=== PATIENT | female | born 1960 | race African-American/Black ===

== ENCOUNTER 2021-08-29 04:12 | Emergency (ER) | payer BC, OTHER ==
[2021-08-29 04:25] VITALS: TEMP 98.3; BMI 29.0
[2021-08-29] MEDS ORDERED: SODIUM CHLORIDE 0.9% 500 ML INFUS.BAG IV ONE ×2 (04:55→05:00)
[2021-08-29 05:30] LABS: BASO % 0.5 % (0-2.0); EOS % 1.1 % (0-4.5); HEMATOCRIT 40.6 % (32.4-45.2); HEMOGLOBIN 13.5 GM/dL (10.7-15.3); LYMPH % 30.5 % (8-40); MCH 33.5 pg (25.7-33.7); MCHC 33.3 g/dl (32.0-36.0); MEAN CELL VOLUME 100.5 fl (80-96); MEAN PLT VOLUME 8.1 fl (7.5-11.1); MONO % 10.6 % (3.8-10.2); NEUT % 57.3 % (42.8-82.8); PLATELET COUNT 194 10^3/uL (134-434); RBC 4.04 M/mm3 (3.60-5.2); RDW 13.1 % (11.6-15.6); WHITE BLOOD COUNT 3.6 K/mm3 (4.0-10.0)
[2021-08-29 05:59] LABS: CHLORIDE 107 mmol/L (98-107); SODIUM 141 mmol/L (136-145)
[2021-08-29 06:01] LABS: CALCIUM 8.7 mg/dL (8.5-10.1)
[2021-08-29 06:02] LABS: ALBUMIN 3.2 g/dl (3.4-5.0); ANION GAP 5 MMOL/L (8-16); BLOOD UREA NITROGEN 12.4 mg/dL (7-18); CO2 30 mmol/L (21-32); GLUCOSE,RANDOM 140 mg/dL (74-106)
[2021-08-29 06:05] LABS: SGOT/AST 19 U/L (15-37); SGPT/ALT 24 U/L (13-61)
[2021-08-29 06:07] LABS: BILIRUBIN,TOTAL 0.4 mg/dL (0.2-1)
[2021-08-29 06:08] LABS: ALK PHOS 80 U/L (45-117)
[2021-08-29] MEDS ORDERED: MECLIZINE HCL 25 MG TABLET (FP) ONE (06:21)
[2021-08-29] MEDS ORDERED: MECLIZINE HCL 25 MG TABLET (FP) PO ONE (06:21)
[2021-08-29 06:58] LABS: EPI CELLS 4 /uL (0-25.1); HYALINE CASTS 0 /uL (0-3.1); URINE APPEARANCE CLEAR; URINE BACTERIA 22 /uL (0-1359); URINE BILIRUBIN NEGATIVE (NEGATIVE); URINE COLOR YELLOW; URINE GLUCOSE (UA) NEGATIVE (NEGATIVE); URINE KETONE NEGATIVE (NEGATIVE); URINE LEUK ESTERASE 1+ (NEGATIVE); URINE NITRITE NEGATIVE (NEGATIVE); URINE PROTEIN NEGATIVE (NEGATIVE); URINE RBC 2 /uL (0-23.9); URINE UROBILINOGEN 0.2 mg/dL (0.2-1.0); URINE WBC 10 /uL (0-25.8)
[2021-08-29 07:57] VITALS: BP 121/68; PULSE 78
== END 2021-08-29 07:57 | disposition home or self-care (01) ==
LOC: JER 04:12
DX: R55 Syncope and collapse (principal)
CPT/HCPCS: 36415; 80053; 81003; 82550; 84484; 85025; 93005; 93010; 99285-25; C9803; U0003; U0005

== ENCOUNTER 2023-01-12 05:41 | Day surgery (SDC) | payer BC ==
[2023-01-08 14:43] VITALS: BMI 26.1
[~2023-01-12 05:41] MED LIST: BUPIVACAINE HCL/PF 0.5% (5MG/ML) 10 ML VIAL NR ONE; LIDOCAINE 1% P/F 10 MG/ML VIAL PNB ONE
[2023-01-12] MEDS ORDERED: BUPIVACAINE HCL/PF 0.5% (5MG/ML) 10 ML VIAL ONE (07:31)
[2023-01-12] MEDS ORDERED: LIDOCAINE HCL/PF 1% SDV 5ML VIAL ONE (07:31)
[2023-01-12 08:57] VITALS: RESP 18
[2023-01-12] MEDS ORDERED: BUPIVACAINE HCL/PF 0.5% (5MG/ML) 10 ML VIAL NR ONE (10:01)
[2023-01-12 11:54] VITALS: BP 130/60; PULSE 73; TEMP 98
== END 2023-01-12 10:50 | disposition home or self-care (01) ==
LOC: JASU-SURG 05:41
PROVIDERS: ATTEND Pain Medicine Pain Medicine
PROC: 3E0T33Z Introduction of Anti-inflammatory into Peripheral Nerves and Plexi, Percutaneous Approach (ICD-10-PCS; 2023-01-12)
PROC: 3E0T3BZ Introduction of Anesthetic Agent into Peripheral Nerves and Plexi, Percutaneous Approach (ICD-10-PCS; principal; 2023-01-12 12:45)
DX: M47.812 Spondylosis without myelopathy or radiculopathy, cervical region (principal)
CPT/HCPCS: 76000-TC-FY